=== PATIENT | female | born 1995 | race African-American/Black ===

== ENCOUNTER 2017-12-18 06:22 | Inpatient (IN) ==
[2017-12-18] MEDS ORDERED: MEPERIDINE 50 MG/1 ML VIAL IM PRN (07:34)
[2017-12-18] MEDS ORDERED: ONDANSETRON 4 MG/2 ML VIAL IV PRN (07:34)
[2017-12-18] MEDS: LACTATED RINGERS 1,000 ML IV SCH ×2 (07:58→14:59)
[2017-12-18] MEDS ORDERED: PENICILLIN G POTASSIUM INJ 6,000,000 UNIT in SODIUM CHLORIDE 0.9% 100 ML IV ONE (08:00)
[2017-12-18] MEDS ORDERED: OXYTOCIN/LR 20 UNIT/1,000 ML BAG IV SCH (08:00)
[2017-12-18 08:19] LABS: Basophils % 0.2 % (0.0-0.8); Eosinophils # 0.2 10*3/uL (0.0-0.87); Eosinophils % 3.6 % (0.00-10.9); Hematocrit 23.9 VOL% (35.7-47.0); Hemoglobin 7.5 GM/DL (12.0-16.0); Immature Granulocytes % 0.4 %; Immature Granulocytes Absolute 0.02 #; Lymphocytes # 1.5 10*3/uL (1.4-4.0); Lymphocytes % 26.4 % (21.3-54.2); Mean Corpuscular HGB Conc 31.4 GM/DL (32-36); Mean Corpuscular Hemoglobin 20 PG (27-34); Mean Corpuscular Volume 64.9 FL (87-102); Mean Platelet Volume 11.3 FL (9.6-12.0); Monocytes # 0.4 10*3/uL (0.11-0.8); Monocytes % 7.8 % (1.7-12.7); NRBC # 0.03 10*3/uL; Neutrophils # 3.4 10*3/uL (1.4-7.4); Neutrophils % 61.6 % (38.7-73.9); Platelet Count 262 T/CUMM (130-400); Red Blood Count 3.68 MC/CUMM (3.8-5.5); Red Cell Distribution Width 18.7 % (9.3-17.3); White Blood Count 5.5 T/CUMM (4-12)
[2017-12-18] MEDS ORDERED: METHYLERGONOVINE 0.2 MG/1 ML AMP ONE ×4 (08:35→17:16)
[2017-12-18 08:37] LABS: Giant Platelets Few; Hypochromasia 1+; Platelet Estimate Adequate
[2017-12-18 08:44] LABS: Albumin 2.4 G/DL (3.4-5.0); Bilirubin,Total 0.4 MG/DL (0.2-1.0); Calcium 8.3 MG/DL (8.5-10.1); Osmolality,Calculated 277.3 MOS/KG (273-304); Potassium 3.5 MMOL/L (3.5-5.1); Total Protein 6.6 G/DL (6.4-8.3)
[2017-12-18] MEDS ORDERED: OXYTOCIN/LR 30 UNIT/1,000 ML BAG IV ONE (10:00)
[2017-12-18] MEDS ORDERED: ePHEDrine 50 MG/ML AMP IV PRN (10:13)
[2017-12-18] MEDS ORDERED: LACTATED RINGERS 1,000 ML IV ONE (10:13)
[2017-12-18] MEDS ORDERED: FAMOTIDINE 20 MG/2 ML VIAL IV ONE (10:13)
[2017-12-18] MEDS ORDERED: CITRIC ACID/SODIUM CITRATE 30 ML UDCUP PO ONE (10:13)
[2017-12-18] MEDS ORDERED: hydrOXYzine HCL 25 MG/1 ML VIAL IM PRN (10:14)
[2017-12-18] MEDS ORDERED: PROMETHAZINE 25 MG/1 ML VIAL IM ONE (10:14)
[2017-12-18] MEDS ORDERED: diphenhydrAMINE 50 MG/1 ML VIAL IV PRN ×2 (10:14)
[2017-12-18] MEDS ORDERED: fentaNYL 2 MCG/ROPIV 0.2% EPID 150 ML EPIDURAL SCH (10:30)
[2017-12-18] MEDS: PENICILLIN G POTASSIUM INJ 3,000,000 UNIT in SODIUM CHLORIDE 0.9% 100 ML IV SCH ×2 (11:57→16:31)
[2017-12-18 13:05] LABS: Apearance,Urine CLEAR (Clear); Bilirubin,Urine Negative (Negative); Blood, Urine Negative (Negative); Glucose,Urine (UA) Negative (Negative); Ketones,Urine 20 mg/dL (Negative); Nitrite,Urine Negative (Negative); Protein,Urine Negative; RBC,Urine <1 /HPF (0-4); Squamous Epithelial Cell,Urine Occasional /HPF (0-10); Urine Color Straw (Yellow); Urine Specific Gravity 1.005 (1.001-1.035); Urine Urobilinogen < 2.0 EU/DL (0.2-1.0); WBC,Urine <1 /HPF (0-6)
[2017-12-18] MEDS ORDERED: OXYTOCIN 10 UNIT/ML VIAL IV ONE (16:07)
[2017-12-18] MEDS ORDERED: LIDOCAINE 1% 50 ML VIAL ONE (17:15)
[2017-12-18] MEDS ORDERED: miSOPROStol 200 MCG TABLET ONE (17:15)
[2017-12-18] MEDS ORDERED: miSOPROStol 200 MCG TABLET RECTAL ONE (17:34)
[2017-12-18] MEDS ORDERED: CARBOPROST TROMETHAMINE 250 MCG/ML AMP IM ONE ×2 (17:37→17:38)
[2017-12-18 19:26] LABS: Basophils % 0.2 % (0.0-0.8); Eosinophils % 0.2 % (0.00-10.9); Hematocrit 29.3 VOL% (35.7-47.0); Hemoglobin 9.3 GM/DL (12.0-16.0); Immature Granulocytes % 0.6 %; Immature Granulocytes Absolute 0.08 #; Lymphocytes # 0.9 10*3/uL (1.4-4.0); Lymphocytes % 6.9 % (21.3-54.2); Mean Corpuscular HGB Conc 31.7 GM/DL (32-36); Mean Corpuscular Hemoglobin 20 PG (27-34); Mean Corpuscular Volume 64.1 FL (87-102); Monocytes # 0.5 10*3/uL (0.11-0.8); Monocytes % 3.7 % (1.7-12.7); NRBC # 0.03 10*3/uL; Neutrophils # 10.9 10*3/uL (1.4-7.4); Neutrophils % 88.4 % (38.7-73.9); Platelet Count 305 T/CUMM (130-400); Red Blood Count 4.57 MC/CUMM (3.8-5.5); White Blood Count 12.4 T/CUMM (4-12)
[2017-12-18 19:36] LABS: INR 0.9; PT Patient Result 9.7 SECS; Partial Thromboplastin Time 25.5 SECS (0-40)
[2017-12-18 19:45] LABS: Albumin 2.6 G/DL (3.4-5.0); Bilirubin,Total 0.6 MG/DL (0.2-1.0); Calcium 8.4 MG/DL (8.5-10.1); Osmolality,Calculated 278.1 MOS/KG (273-304); Potassium 4.1 MMOL/L (3.5-5.1); Total Protein 6.8 G/DL (6.4-8.3); Uric Acid 4.6 MG/DL (2.6-6.0)
[2017-12-18] MEDS ORDERED: IBUPROFEN 800 MG TABLET PO PRN (19:47)
[2017-12-18] MEDS ORDERED: MAGNESIUM SULF RIDER 100 ML IV ONE (20:18)
[2017-12-18] MEDS ORDERED: MAGNESIUM SULF DRIP 40 GM/1,000 ML ML IV SCH (20:30)
[2017-12-18] MEDS ORDERED: LANOLIN 50% CREAM 0.3 OZ TUBE TOP PRN (21:22)
[2017-12-18] MEDS ORDERED: DIPH/TET/ACEL PERT BOOSTER VACCINE 0.5 ML VIAL IM ONE (21:22)
[2017-12-18] MEDS ORDERED: WITCH HAZEL PADS 100/JAR TOP PRN (21:22)
[2017-12-18] MEDS ORDERED: BISACODYL 10 MG SUPP RECTAL PRN (21:22)
[2017-12-18] MEDS ORDERED: HYDROCORTISONE 2.5% RECTAL CREAM 30 GM TUBE TOP PRN (21:22)
[2017-12-18] MEDS ORDERED: ACETAMINOPHEN 325 MG TABLET PO SCH (21:22)
[2017-12-18] MEDS ORDERED: BENZOCAINE 20%/MENTHOL 0.5% SPRAY 56 GM CAN TOP PRN (21:22)
[2017-12-18] MEDS ORDERED: RHO(D) IMMUNE GLOBULIN 300 MCG SYRINGE IM ONE (21:22)
[2017-12-18] MEDS ORDERED: MEASLES/MUMPS/RUBELLA VACCINE 0.5 ML VIAL SUBCUT ONE (21:22)
[2017-12-18] MEDS: KETOROLAC 30 MG/1 ML VIAL IV SCH (21:53)
[2017-12-19] MEDS: KETOROLAC 30 MG/1 ML VIAL IV SCH ×2 (03:45→09:17)
[2017-12-19] MEDS: ACETAMINOPHEN 500 MG TABLET PO SCH ×4 (03:50→23:09)
[2017-12-19 04:33] LABS: Basophils % 0.2 % (0.0-0.8); Eosinophils % 0.2 % (0.00-10.9); Hematocrit 18.2 VOL% (35.7-47.0); Immature Granulocytes Absolute 0.13 #; Lymphocytes % 7.6 % (21.3-54.2); Mean Corpuscular HGB Conc 33.5 GM/DL (32-36); Mean Corpuscular Hemoglobin 21 PG (27-34); Mean Corpuscular Volume 61.1 FL (87-102); Monocytes # 0.9 10*3/uL (0.11-0.8); Monocytes % 6.7 % (1.7-12.7); NRBC # 0.09 10*3/uL; Neutrophils # 11.5 10*3/uL (1.4-7.4); Neutrophils % 84.3 % (38.7-73.9); Platelet Count 219 T/CUMM (130-400); Red Blood Count 2.98 MC/CUMM (3.8-5.5); Red Cell Distribution Width 18.6 % (9.3-17.3); White Blood Count 13.6 T/CUMM (4-12)
[2017-12-19 04:46] LABS: Hemoglobin 6.1 GM/DL (12.0-16.0)
[2017-12-19 04:55] LABS: Hypochromasia 1+; Ovalocytes Slight; Platelet Estimate Adequate; Target Cells Few
[2017-12-19] MEDS ORDERED: SODIUM CHLORIDE 0.9% 1,000 ML IV PRN (04:55)
[2017-12-19] MEDS: DOCUSATE SODIUM 100 MG CAPSULE PO SCH ×2 (09:16→20:02)
[2017-12-19] MEDS: IBUPROFEN 800 MG TABLET PO SCH ×2 (09:24→17:33)
[2017-12-19] MEDS ORDERED: IBUPROFEN 800 MG TABLET PO SCH (12:00)
[2017-12-19 14:45] LABS: Hematocrit 26.6 VOL% (35.7-47.0)
[2017-12-19 14:57] LABS: Hemoglobin 8.7 GM/DL (12.0-16.0)
[2017-12-20] MEDS: IBUPROFEN 800 MG TABLET PO SCH ×2 (01:53→10:42)
[2017-12-20] MEDS: ACETAMINOPHEN 500 MG TABLET PO SCH (05:49)
[2017-12-20 07:18] VITALS: BP 141/77
[2017-12-20] MEDS: DOCUSATE SODIUM 100 MG CAPSULE PO SCH (09:02)
== END 2017-12-20 11:50 | disposition home or self-care (01) | DRG 560 ==
LOC: N.LDOUT 06:22 → N.LD 06:23 → N.OB 22:15
PROVIDERS: ADMIT Obstetrics & Gynecology; ATTEND Obstetrics & Gynecology

== ENCOUNTER 2020-04-06 05:58 | Inpatient (IN) ==
[2020-04-06] MEDS ORDERED: ONDANSETRON 4 MG/2 ML VIAL IV PRN ×2 (06:09→14:04)
[2020-04-06] MEDS ORDERED: MEPERIDINE 50 MG/1 ML VIAL IV PRN (06:09)
[2020-04-06] MEDS ORDERED: BUTORPHANOL 2 MG/ML VIAL IV PRN (06:09)
[2020-04-06] MEDS ORDERED: OXYTOCIN/LR 20 UNIT/1,000 ML BAG IV SCH (06:30)
[2020-04-06] MEDS: LACTATED RINGERS 1,000 ML IV SCH ×2 (06:34→10:05)
[2020-04-06 06:54] LABS: Basophils % 0.5 % (0.0-0.8); Eosinophils # 0.1 10*3/uL (0.0-0.87); Eosinophils % 2.1 % (0.00-10.9); Hematocrit 26.8 VOL% (35.7-47.0); Hemoglobin 8.9 GM/DL (12.0-16.0); Immature Granulocytes % 0.5 %; Immature Granulocytes Absolute 0.03 #; Lymphocytes # 1.7 10*3/uL (1.4-4.0); Lymphocytes % 25.5 % (21.3-54.2); Mean Corpuscular HGB Conc 33.2 GM/DL (32-36); Mean Platelet Volume 11.2 FL (9.6-12.0); Monocytes % 8.9 % (1.7-12.7); NRBC # 0.02 10*3/uL; Neutrophils % 62.5 % (38.7-73.9); Platelet Count 272 T/CUMM (130-400); White Blood Count 6.6 T/CUMM (4-12)
[2020-04-06] MEDS ORDERED: AMPICILLIN INJ 2,000 MG in SODIUM CHLORIDE 0.9% 100 ML IV ONE (07:00)
[2020-04-06 07:05] LABS: Alanine Aminotransferase < 9 U/L (13-56); Albumin 2.5 G/DL (3.4-5.0); Alkaline Phosphatase 173 U/L (45-117); Aspartate Amino Transferase 16 U/L (0-37); Blood Urea Nitrogen 6 MG/DL (7-18); Calcium 8.6 MG/DL (8.5-10.1); Estimated Glom Filtration Rate 143 ML/MIN; Glucose 73 MG/DL (74-106); Osmolality,Calculated 273.5 MOS/KG (273-304); Total Protein 6.8 G/DL (6.4-8.3)
[2020-04-06 07:22] LABS: Hypochromasia 1+; Microcytosis 1+
[2020-04-06 07:23] LABS: Anisocytosis 1+; Ovalocytes Slight; Platelet Estimate Normal; Target Cells Few
[2020-04-06 07:24] LABS: Polychromasia Slight
[2020-04-06] MEDS ORDERED: diphenhydrAMINE 50 MG/1 ML VIAL IV PRN ×2 (08:23)
[2020-04-06] MEDS ORDERED: hydrOXYzine HCL 25 MG/1 ML VIAL IM PRN (08:23)
[2020-04-06] MEDS ORDERED: CITRIC ACID/SODIUM CITRATE 30 ML UDCUP PO ONE (08:23)
[2020-04-06] MEDS ORDERED: FAMOTIDINE 20 MG/2 ML VIAL IV ONE (08:23)
[2020-04-06] MEDS ORDERED: ePHEDrine 50 MG/ML VIAL IV PRN (08:23)
[2020-04-06] MEDS ORDERED: NALOXONE 0.4 MG/ML VIAL IV PRN (08:23)
[2020-04-06] MEDS ORDERED: PROMETHAZINE 25 MG/1 ML VIAL IM PRN (08:23)
[2020-04-06] MEDS ORDERED: fentaNYL 2 MCG/ROPIV 0.2% EPID 100 ML EPIDURAL SCH (08:30)
[2020-04-06] MEDS ORDERED: AMPICILLIN INJ 1,000 MG in SODIUM CHLORIDE 0.9% 100 ML IV SCH (11:00)
[2020-04-06 11:35] LABS: Bilirubin,Urine Negative (Negative); Blood, Urine Moderate mg/dL (Negative); Glucose,Urine (UA) Negative (Negative); Ketones,Urine 20 mg/dL (Negative); Nitrite,Urine Negative (Negative); Protein,Urine Negative; RBC,Urine 17 /HPF (0-4); Squamous Epithelial Cell,Urine Occasional /HPF (0-10); Urine Appearance CLEAR (Clear); Urine Color Straw (Yellow); Urine Specific Gravity 1.008 (1.001-1.035); Urine Urobilinogen < 2.0 EU/DL (0.2-1.0); WBC,Urine <1 /HPF (0-6)
[2020-04-06] MEDS ORDERED: miSOPROStoL 200 MCG TABLET ONE (12:38)
[2020-04-06] MEDS ORDERED: TRANEXAMIC ACID 1,000 MG/10 ML VIAL ONE (12:38)
[2020-04-06] MEDS ORDERED: METHYLERGONOVINE 0.2 MG/1 ML AMP ONE (12:39)
[2020-04-06] MEDS ORDERED: CARBOPROST TROMETHAMINE 250 MCG/ML AMP IM ONE (12:39)
[2020-04-06 13:12] LABS: Cord Venous Blood HCO3 23.5 MMOL/L; Cord Venous Blood PCO2 40.8 MMHG; Cord Venous Blood PO2 54.4
[2020-04-06] MEDS ORDERED: BISACODYL 10 MG SUPP RECTAL PRN (14:04)
[2020-04-06] MEDS ORDERED: MAGNESIUM HYDROXIDE SUSP 30 ML UDCUP PO PRN (14:04)
[2020-04-06] MEDS ORDERED: ACETAMINOPHEN 325 MG TABLET PO PRN (14:04)
[2020-04-06] MEDS ORDERED: LACTATED RINGERS 1,000 ML IV SCH (14:30)
[2020-04-06] MEDS: DOCUSATE SODIUM 100 MG CAPSULE PO SCH (21:22)
[2020-04-06] MEDS: IBUPROFEN 800 MG TABLET PO PRN (23:25)
[2020-04-07 05:59] LABS: Basophils % 0.2 % (0.0-0.8); Eosinophils # 0.1 10*3/uL (0.0-0.87); Eosinophils % 0.9 % (0.00-10.9); Hematocrit 25.3 VOL% (35.7-47.0); Hemoglobin 8.5 GM/DL (12.0-16.0); Immature Granulocytes % 0.4 %; Immature Granulocytes Absolute 0.05 #; Lymphocytes # 1.8 10*3/uL (1.4-4.0); Lymphocytes % 13.7 % (21.3-54.2); Mean Corpuscular HGB Conc 33.6 GM/DL (32-36); Mean Corpuscular Volume 65.7 FL (87-102); Mean Platelet Volume 11.4 FL (9.6-12.0); Monocytes % 7.9 % (1.7-12.7); Neutrophils % 76.9 % (38.7-73.9); Platelet Count 254 T/CUMM (130-400); Red Blood Count 3.85 MC/CUMM (3.8-5.5); White Blood Count 13.3 T/CUMM (4-12)
[2020-04-07 06:22] LABS: Hypochromasia 1+; Microcytosis Slight; Ovalocytes Slight; Platelet Estimate Adequate
[2020-04-07] MEDS: DOCUSATE SODIUM 100 MG CAPSULE PO SCH ×2 (11:22→21:24)
[2020-04-07] MEDS ORDERED: IRON (CARBONYL)/VIT C/B12/FA TABLET PO SCH (15:00)
[2020-04-07] MEDS: IBUPROFEN 800 MG TABLET PO PRN (19:40)
[2020-04-08] MEDS: DOCUSATE SODIUM 100 MG CAPSULE PO SCH (09:11)
[2020-04-08] MEDS ORDERED: DIPH/TET/ACEL PERT BOOSTER VACCINE 0.5 ML VIAL IM ONE (10:16)
[2020-04-08] MEDS ORDERED: INFLUENZA VIRUS VACCINE 0.5 ML SYRINGE IM ONE (10:16)
[2020-04-08 11:06] VITALS: BP 107/66
== END 2020-04-08 12:35 | disposition home or self-care (01) | DRG 560 ==
LOC: N.LDOUT 05:58 → N.LD 06:02 → N.OB 15:55
PROVIDERS: ADMIT Obstetrics & Gynecology; ATTEND Obstetrics & Gynecology